=== PATIENT | male | born 2000 | race Hispanic/Latino ===

== ENCOUNTER 2020-11-26 05:40 | Emergency (ER) | payer MEDICAID, OTHER ==
[~2020-11-26] VITALS: Ht 175.3 cm; Wt 77.1 kg
[2020-11-26 05:52] VITALS: BP 114/53
[2020-11-26] MEDS ORDERED: CLIN-141 PO (06:21)
[2020-11-26] MEDS ORDERED: CLINDAMYCIN 150 MG CAP ONE (06:27)
[2020-11-26] MEDS ORDERED: CLINDAMYCIN 150 MG CAP PO ONE (06:30)
== END 2020-11-26 07:00 | disposition home or self-care (01) ==
LOC: EDH 05:40
DX: L03.811 Cellulitis of head [any part, except face] (principal); J45.909 Unspecified asthma, uncomplicated